=== PATIENT | male | born 1945 | race Caucasian/White ===

== ENCOUNTER 2017-01-25 08:35 | Day surgery (SDC) | payer MEDICARE, OTHER ==
[2017-01-25] MEDS ORDERED: DEMEROL 50 MG IV ONE (08:36)
[2017-01-25] MEDS ORDERED: VERSED 5 MG/5 ML IV ONE (08:36)
--- NOTE | 2017-01-25 08:37 | HP ---
DATE OF SURGERY: 01/25/2017 ADMISSION DIAGNOSIS: Four year follow up of polyps. ANTICIPATED PROCEDURE: Colonoscopy. HISTORY OF PRESENT ILLNESS: PAST MEDICAL HISTORY: ALLERGIES: PENICILLIN. MEDICATIONS: Multiple. PAST SURGICAL HISTORY: Appendectomy, tonsillectomy, knee replacement. SOCIAL HISTORY: Negative. FAMILY HISTORY: Negative. REVIEW OF SYSTEMS: Diabetes, hypertension. PHYSICAL EXAMINATION: VITAL SIGNS: Normal. CHEST: Clear. COR: Regular. ABDOMEN: No palpable organomegaly or mass. IMPRESSION: Four year follow up of polyps. PLAN: Colonoscopy.
[2017-01-25] MEDS ORDERED: Sodium Chloride 0.9% 1000 ML 1,000 ML IV SCH (09:15)
[2017-01-25 12:22] VITALS: BP 139/87; PULSE 83; O2SAT 97
--- NOTE | 2017-01-25 13:00 | OP ---
SURGERY DATE/TIME: 01/25/2017 1120 PREOPERATIVE DIAGNOSIS: Four year follow up of polyps. POSTOPERATIVE DIAGNOSIS: One major polyp md sigmoid 25 cm requiring hot biopsy followed by hot snare, followed by methylene blue marking. PROCEDURE: Colonoscopy. SURGEON: Edgar Villalobos M.D. ANESTHESIA: 20 minutes IV sedation monitored. COMPLICATIONS: None. CONDITION: Stable. INDICATION: A 71 years old requiring evaluation. DESCRIPTION OF PROCEDURE: Taken to the endoscopy. Anal digital examination satisfactory. Time out performed. IV sedation titrated. Oximetry kept over 90% and comfort level was satisfactory throughout the procedure. The scope advanced up to the cecum. Cecum was slightly indistinct but ileocecal valve was satisfactory base of the cecum, ascending, hepatic, transverse, splenic, descending. In the sigmoid a 1.2 cm polyp was picked up, was hot biopsied. It was then snared and taken with hot snare. The base was totally removed. It was removed very nicely. The mucosa was absent for 1 cm distance. Muscularis appeared totally intact. This was then marked with dye both on the medial and lateral surfaces of the mid sigmoid. The scope withdrawn. No additional lesions. The patient tolerated the procedure satisfactorily. Findings discussed with the family in the waiting room. I will see him back in the office in two weeks. This is an interesting polyp and the pathology will be important.
== END 2017-01-25 12:55 | disposition home or self-care (01) ==
LOC: SDC 08:35
PROVIDERS: ATTEND Surgery
PROC: 0DBN8ZX Excision of Sigmoid Colon, Via Natural or Artificial Opening Endoscopic, Diagnostic (ICD-10-PCS; principal; 2017-01-25)
PROC: 3E0H8GC Introduction of Other Therapeutic Substance into Lower GI, Via Natural or Artificial Opening Endoscopic (ICD-10-PCS; 2017-01-25)
PROC: 0DBN8ZX Excision of Sigmoid Colon, Via Natural or Artificial Opening Endoscopic, Diagnostic (ICD-10-PCS; 2017-01-25)
DX: Z86.010 Personal history of colon polyps (principal); K63.5 Polyp of colon; Z09 Encounter for follow-up examination after completed treatment for conditions other than malignant neoplasm; I10 Essential (primary) hypertension; E11.9 Type 2 diabetes mellitus without complications
CPT/HCPCS: 88305; J2175; J2250

== ENCOUNTER 2020-05-27 11:32 | Day surgery (SDC) | payer MEDICARE ==
--- NOTE | 2020-05-14 10:54 | HP ---
DATE OF SURGERY: 05/27/2020 HISTORY OF PRESENT ILLNESS: The patient presents with follow up colonoscopy. Last colonoscopy was in 2017 and he had some polyps. He was started on some Protonix and reports it helps with reflux, has soft bowel movements daily. He reports that there has been some recent anemia. He denies any rectal bleeding, hematemesis. PAST MEDICAL HISTORY: Diabetes. Hypertension. Hyperlipidemia. PAST SURGICAL HISTORY: Bilateral knee replacement. Tonsillectomy. Appendectomy. ALLERGIES: PENICILLIN. EPINEPHRINE. MEDICATIONS: Metformin, pantoprazole, potassium, simethicone, aspirin, labetalol, losartan, nitroglycerin, Albuterol, glipizide, glucosamine, indapamide, loratadine. FAMILY HISTORY: None reported. SOCIAL HISTORY: Reports alcohol use. REVIEW OF SYSTEMS: CONSTITUTIONAL: Denies fever or chills. CHEST: Denies shortness of breath. CVS: Denies chest pain. ABDOMEN: Denies abdominal pain, nausea, vomiting, diarrhea, constipation or rectal bleeding. INTEGUMENTARY: Negative. PHYSICAL EXAMINATION: GENERAL: No acute distress. CHEST: Nonlabored. No shortness of breath. CVS: Regular rate and rhythm. ABDOMEN: Soft, nontender to palpation. EXTREMITIES: No edema. NEUROLOGIC: Alert. PSYCHIATRIC: Appropriate. IMPRESSION: Anemia, history of colon polyps. PLAN: EGD and colonoscopy with Dr. Edgar Villalobos. As dictated by Sonam Rebolledo NP.
[~2020-05-27 11:32] MED LIST: Lactated Ringers 1,000 ML IV SCH
[2020-05-27] MEDS ORDERED: Lactated Ringers 1,000 ML IV ONE (11:44)
--- NOTE | 2020-05-27 15:23 | OP ---
SURGERY DATE/TIME: 05/27/2020 9500 PREOPERATIVE DIAGNOSIS: Anemia. POSTOPERATIVE DIAGNOSES: 1) The patient has proton pump inhibitor polyp's otherwise normal upper endoscopic examination. 2) Colon was limited to the right mid colon. 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 3) Hot polypectomy of transverse polyp. 4) The patient has severe sigmoid diverticulosis. PROCEDURES: 1) EGD. 2) Colonoscopy. SURGEON: Edgar Villalobos M.D. ANESTHESIA: MAC. COMPLICATIONS: None. CONDITION: Stable. INDICATION: The patient has new anemia referred for evaluation. DESCRIPTION OF PROCEDURE: Taken to endoscopy. Left lateral decubitus position. Scope introduced. Pharyngoesophageal junction was normal. Esophagus normal down to gastroesophageal junction. There were proton pump inhibitor polyps but the stomach otherwise was normal. There were no signs of bleeding. Pylorus satisfactory. Duodenum satisfactory. The scope was withdrawn looped upon itself and noted hiatal hernia from below. Scope withdrawn. Anal digital examination satisfactory. Scope introduced. There was severe sigmoid diverticulosis navigated. Left colon was navigated. Coming across from the spleen a 2 cm polyp was taken at the mid transverse colon. Coming over I believe this is mid ascending but it could be hepatic that a massive fungating mass 270 degrees looks most consistent with colon cancer was present. [employer] Pollution Compliance Inspector biopsies obtained and the procedure was terminated at that point. The patient will clearly need a right hemicolectomy. On circumferential withdrawal, no additional lesions noted although the exam a little under prepped today. He will need a follow up exam not to long after his colonoscopy for perfection. Findings discussed with the family. We will obtain a CEA, obtain a CT scan. The path is pending. We will see him back in the office on Sunday.
[2020-05-27 15:34] VITALS: BP 160/92; PULSE 62; O2SAT 95
== END 2020-05-27 15:45 | disposition home or self-care (01) ==
LOC: SDC 11:32
PROVIDERS: ATTEND Surgery
DX: C18.9 Malignant neoplasm of colon, unspecified (principal); D64.9 Anemia, unspecified; Z86.010 Personal history of colon polyps; D12.2 Benign neoplasm of ascending colon; D12.3 Benign neoplasm of transverse colon; K57.30 Diverticulosis of large intestine without perforation or abscess without bleeding; K44.9 Diaphragmatic hernia without obstruction or gangrene; E11.9 Type 2 diabetes mellitus without complications; I10 Essential (primary) hypertension; E78.5 Hyperlipidemia, unspecified; Z79.899 Other long term (current) drug therapy
CPT/HCPCS: 36415; 82378; 82947; 88305; 99100

== ENCOUNTER 2021-07-28 08:23 | Day surgery (SDC) | payer MEDICARE ==
--- NOTE | 2021-07-20 15:35 | HP ---
DATE OF SURGERY: 07/28/2021 HISTORY OF PRESENT ILLNESS: The patient presents for endoscopy. Apparently the patient recently had been diagnosed with anemia. He denies any GI symptoms at this time. He does have a history of colon cancer. He had a right hemicolectomy in June 2020. I do not think the patient has been scoped since then. PAST MEDICAL HISTORY: Atrial fibrillation. Colon cancer. Coronary artery disease. Diabetes. Heart attack. Hypertension. Hyperlipidemia. PAST SURGICAL HISTORY: Right hemicolectomy. Heart cath. Appendectomy. T&A. Ventral hernia repair. ALLERGIES: PENICILLIN. EPINEPHRINE. STATINS. MEDICATIONS: Xarelto, simethicone, Repatha, ProAir, potassium, pantoprazole, Nitro, Metformin, lorazepam, loratadine, labetalol, indapamide, glucosamine, glipizide. FAMILY HISTORY: None reported. SOCIAL HISTORY: None reported. REVIEW OF SYSTEMS: CONSTITUTIONAL: Denies fever or chills. CHEST: Denies shortness of breath. CVS: Denies chest pain. ABDOMEN: Denies abdominal pain or rectal bleeding. PHYSICAL EXAMINATION: GENERAL: No acute distress. CHEST: Nonlabored. No shortness of breath. CVS: Regular rate and rhythm. ABDOMEN: Soft, nontender. IMPRESSION: Anemia and history of colon cancer. PLAN: EGD and colonoscopy with Dr. Edgar Villalobos. As dictated by Sonam Rebolledo NP.
[2021-07-28] MEDS ORDERED: Lactated Ringers 1,000 ML IV SCH (09:00)
[2021-07-28] MEDS ORDERED: Xylocaine-Mpf 2% 5 Ml Vial ONE (10:35)
[2021-07-28] MEDS ORDERED: DIPRIVAN 200 MG/20 ML IV ONE ×2 (10:35→11:34)
[2021-07-28 11:38] VITALS: O2SAT 97
[2021-07-28 11:56] VITALS: BP 176/82; PULSE 65
--- NOTE | 2021-07-28 13:53 | OP ---
SURGERY DATE: 07/28/2021 SURGERY TIME: 1100 PREOPERATIVE DIAGNOSIS: 1. ANEMIA. 2. HISTORY OF COLON CANCER. POSTOPERATIVE DIAGNOSIS: 1. TWO POLYPS, ONE IN THE TRANSVERSE COLON AND ONE IN THE DESCENDING/SIGMOID JUNCTION AREA. 2. GRADE 2/4 GASTROESOPHAGEAL REFLUX DISEASE. 3. NEARLY RESOLVED GASTRITIS IN THE ANTRUM. PROCEDURE: 1. Colonoscopy complete with hot polypectomy X 2. Normal anastomosis, 2 polyps. 2. EGD. SURGEON: Edgar Villalobos M.D. ANESTHESIA: MAC. COMPLICATIONS: None. CONDITION: Stable. OPERATIVE PROCEDURE: Phrenoesophageal junction cannulated. Esophagus normal down to esophagogastric junction. Esophagitis grade 2. Small hiatal hernia. Fundus and body. In antrum, resolving antritis, just about healed. Pylorus satisfactory. Duodenal bulb satisfactory. 2nd portion satisfactory. Scope looped upon itself. Small hiatal hernia. Scope withdrawn. Anal digital examination satisfactory. Scope introduced. Scope advanced to the anastomosis. The anastomosis normal. Coming back about 4", 8 mm polyp was taken to extinction. Coming back down in the descending/sigmoid, a 1 cm polyp taken to extinction. Sigmoid, rectum, and anus satisfactory. No blood was seen on today's examination. Two polyps were taken. He certainly had had some gastritis recently, but it has just about healed. He was not placed on any additional medications.
== END 2021-07-28 11:59 | disposition home or self-care (01) ==
LOC: SDC 08:23
PROVIDERS: ATTEND Surgery
DX: Z08 Encounter for follow-up examination after completed treatment for malignant neoplasm (principal); Z85.038 Personal history of other malignant neoplasm of large intestine; D64.9 Anemia, unspecified; D12.4 Benign neoplasm of descending colon; D12.3 Benign neoplasm of transverse colon; K21.9 Gastro-esophageal reflux disease without esophagitis; K29.70 Gastritis, unspecified, without bleeding; E11.9 Type 2 diabetes mellitus without complications
CPT/HCPCS: 82947; 99100; J2704

== ENCOUNTER 2023-04-12 07:56 | Day surgery (SDC) | payer MEDICARE ==
--- NOTE | 2023-04-11 12:59 | HP ---
DATE OF SURGERY: 04/12/2023 HISTORY OF PRESENT ILLNESS: The patient is a 77-year-old male presents for colonoscopy. The patient had right hemicolectomy for colon cancer some years back. He presents for follow up of such. PAST MEDICAL HISTORY: Coronary artery disease. Colon cancer. Myocardial infarction. Heartburn. Arthritis. Asthma. Hypertension. Benign prostatic hypertrophy. PAST SURGICAL HISTORY: Appendectomy. Cardiac ablation. Right hemicolectomy. Carotid endarterectomy. Knee surgery. Tonsillectomy. Hernia repair. ALLERGIES: PENICILLIN. EPINEPHRINE. MEDICATIONS: Repatha. Mounjaro, tamsulosin, diltiazem, Xarelto, pantoprazole, nitroglycerin, losartan, lorazepam, loratadine, labetalol, indapamide, glucosamine, glipizide, silvia root, flaxseed oil, colchicine, Albuterol. FAMILY HISTORY: None reported. SOCIAL HISTORY: Occasional alcohol. REVIEW OF SYSTEMS: CONSTITUTIONAL: Denies fever or chills. CHEST: Denies shortness of breath. CVS: Denies chest pain. ABDOMEN: Denies abdominal pain. PHYSICAL EXAMINATION: GENERAL: No acute distress. CHEST: Nonlabored. No shortness of breath. CVS: Regular rate and rhythm. ABDOMEN: Soft. IMPRESSION: History of colon cancer. PLAN: Colonoscopy with Dr. Edgar Villalobos. As dictated by Sonam Rebolledo NP.
[2023-04-12] MEDS ORDERED: Lactated Ringers 1,000 ML IV ONE (08:11)
[2023-04-12] MEDS: Lactated Ringers 1,000 ML IV SCH (08:17)
[2023-04-12] MEDS ORDERED: DIPRIVAN 200 MG/20 ML IV ONE ×2 (10:59→11:19)
[2023-04-12 12:09] VITALS: BP 136/74; PULSE 64; RESP 18; TEMP 97.1; O2SAT 95
--- NOTE | 2023-04-12 13:32 | OP ---
SURGERY DATE/TIME: 04/12/2023 1100 PREOPERATIVE DIAGNOSIS: Follow up polyps. POSTOPERATIVE DIAGNOSIS: Two polyps, splenic flexure 1 cm and sigmoid 1 cm. PROCEDURE: Colonoscopy complete with hot polypectomy x2. SURGEON: Edgar Villalobos M.D. ANESTHESIA: General. COMPLICATIONS: None. CONDITION: Stable. INDICATION: The patient had previous resection for cancer. He presents for colon surveillance and follow up. DESCRIPTION OF PROCEDURE: He was taken to endoscopy. Left lateral decubitus position. Anal digital examination satisfactory. Prostate satisfactory. Scope introduced to mid transverse colon. Anastomosis is normal. On circumferential withdrawal, the prep was okay, not perfect and it was one off but it was pretty satisfactory. A 1 cm polyp in the splenic flexure taken with hot biopsy forceps. A 1 cm polyp in the mid sigmoid taken with hot biopsy forceps. Scope withdrawn. The patient tolerated the procedure satisfactorily. Anticipated follow up in three years.
== END 2023-04-12 12:22 | disposition home or self-care (01) ==
LOC: SDC 07:56
PROVIDERS: ATTEND Surgery
DX: Z08 Encounter for follow-up examination after completed treatment for malignant neoplasm (principal); Z85.038 Personal history of other malignant neoplasm of large intestine; Z86.010 Personal history of colon polyps; Z79.899 Other long term (current) drug therapy; D12.5 Benign neoplasm of sigmoid colon
CPT/HCPCS: 82947; 99100; J2704

== ENCOUNTER 2024-11-26 08:29 | Emergency (ER) | payer MEDICARE ==
[2024-11-26 08:52] VITALS: RESP 16; TEMP 97.9
--- NOTE | 2024-11-26 09:31 | ERPHSYRPT ---
- History of Present Illness Time Seen by Provider: 11/26/24 09:21 Source: patient, family Patient Subjective Stated Complaint: Cough, malaise, headache Triage Nursing Assessment: Patient walks to the bed accompanied by family member. He state states be was exposed to a sick grandchild last week and begin feeling sick after his COVID vaccine on Sunday. He has been experiencing a productive cough with green mucous, headache rated at a 3 and malaise. He denies shortness of breath at this time, but says he is short of breath at night. Lung sounds are diminished in the bases. He denies any other pain. Physician History: Patient comes to the emergency room stating that he has been dealing with cough congestion going on for the past couple day. He has been dealing also with a sore throat and stating that he has not had no fever but at times he felt like he was wheezing slightly but at this time he has not he is coughing up clear type sputum. Patient couple months ago was dealing with pneumonia family was concerned that he might have pneumonia again. Timing/Duration: yesterday Possible Cause: occasional episodes Modifying Factors: Improves With: activity, coughing Associated Symptoms: cough, earache, nasal drainage, sore throat, No fever, No chest pain/soreness Allergies/Adverse Reactions: [id number] Reductase Inhibitor Adverse Reaction (Verified 09/23/24 10:33) Home Medications: Albuterol Sulfate [Proair Hfa] 8.5 gm IH QID 05/18/20 [History] Flaxseed Oil [Flax Seed Oil] 1,000 mg PO TID 05/18/20 [History] Silvia Root 550 mg PO TID 05/18/20 [History] Indapamide 5 mg PO BREAKFAST 05/18/20 [History] Loratadine 10 mg [Claritin 10 mg] 10 mg PO DAILY 05/18/20 [History] Lorazepam 0.5 mg [Ativan 0.5 MG] 0.5 mg PO BID PRN 05/18/20 [History] Losartan Potassium [Cozaar] 25 mg PO DAILY 05/18/20 [History] PANTOPRAZOLE 40 mg Tablet [Protonix 40MG Tablet] 40 mg PO QAM 05/18/20 [History] Simethicone 80 mg [Mylicon 80MG] 80 mg PO TID 05/18/20 [History] dilTIAZem HCL [Cardizem LA] 180 mg PO DAILY 07/26/21 [History] Tamsulosin HCl 0.4 mg [Flomax 0.4 MG] 0.4 mg PO DAILY 07/28/21 [History] Colchicine 0.6 mg PO DAILY 04/06/23 [History] Tirzepatide [Mounjaro] 10 mg SQ WEEKLY 04/06/23 [History] Ferrous Sulfate 325 mg [Feosol 325 mg] 325 mg PO DAILY 04/12/23 [History] Metformin HCl 500 mg [Glucophage 500 MG] 1,000 mg PO BIDWM 04/12/23 [History] Nitroglycerin 0.4 mg (Ed) [Nitrostat 0.4 MG (ED)] 0.4 mg SL Q5MIN PRN MR X 3 PRN 04/12/23 [History] Potassium Chloride 20 meq PO DAILY 04/12/23 [History] Evolocumab [Repatha Sureclick] 140 mg SQ UD 10/09/24 [History] Labetalol HCl 100 mg [Trandate 100 MG] 100 mg PO TID 10/09/24 [History] glipiZIDE [Glipizide] 2.5 mg PO DAILY 10/09/24 [History] Hx Tetanus, Diphtheria Vaccination/Date Given: Yes Hx Influenza Vaccination/Date Given: Yes Hx Pneumococcal Vaccination/Date Given: Yes Immunizations Up to Date: Yes Travel Risk - International Travel Have you traveled outside of the country in past 3 weeks: No - Emerging Infectious Disease Are you exhibiting symptoms associated with any current EIDs: Yes Symptoms: Cough: New Onset - Review of Systems Constitutional: Fatigue, No Fever, No Chills Ears, Nose, & Throat: Ear Pain, Nose Congestion, Throat Pain Respiratory: Cough Cardiac: No Chest Pain, No Edema, No Syncope Abdominal/Gastrointestinal: No Symptoms Musculoskeletal: No Back Pain, No Neck Pain Skin: No Rash Neurological: No Dizziness, No Focal Weakness, No Sensory Changes - Past Medical History Pertinent Past Medical History: Yes Neurological History: No Pertinent History ENT History: No Pertinent History Cardiac History: Angina, High Cholesterol, Hypertension Respiratory History: Asthma Endocrine Medical History: Diabetes Type II Musculoskeletal History: Arthritis GI Medical History: Colorectal Cancer, GERD, Polyps History: No Pertinent History Psycho-Social History: Anxiety Male Reproductive Disorders: No Pertinent History, Prostate Cancer Other Medical History: hx gas bloating and burning sensation upper gi, nausea. prostate cancer with radiation - Past Surgical History Past Surgical History: Yes Neuro Surgical History: No Pertinent History Cardiac: Cardiac Stent Respiratory: No Pertinent History Gastrointestinal: Appendectomy, Colon Resection, Hernia Repair Genitourinary: No Pertinent History Musculoskeletal: Orthopedic Surgery Male Surgical History: No Pertinent History Other Surgical History: shilpa. knee replacement-hip replacement. multiple colonoscopies and egd's. - Social History Smoking Status: Former smoker Exposure to second hand smoke: No Drug Use: none - Social Determinants of Health Will the patient participate in the screening: Yes Do you worry about a steady place to live?: No Do you have any problems with any of the following?: No known problems In the past 12 months,have you had to go without utilities?: No Transportation Issues: No Has anyone in your support network made you feel unsafe?: No Have you or anyone in your house had to go w/o enough food: No - Nursing Vital Signs Nursing Vital Signs: Initial Vital Signs Temperature 97.9 F 11/26/24 08:33 Pulse Rate 80 11/26/24 08:33 Respiratory Rate 16 11/26/24 08:33 Blood Pressure 130/90 11/26/24 08:33 O2 Sat by Pulse Oximetry 96 11/26/24 08:33 Pain Scale Pain Intensity 4 - Physical Exam General Appearance: no apparent distress Eye Exam: PERRL/EOMI Ears, Nose, Throat Exam: normal ENT inspection Neck Exam: normal inspection Respiratory Exam: normal breath sounds Cardiovascular Exam: regular rate/rhythm Neurologic Exam: alert, oriented x 3, cooperative Lymphatic Exam: No adenopathy SpO2 Interpretation: normal SpO2: 96 - Course Nursing assessment & vital signs reviewed: Yes Ordered Tests: Active Orders 24 hr Category Date Time Status CHEST 1 VIEW (PORTABLE) Stat Exams 11/26/24 09:11 Completed Lab/Rad Data: Laboratory Results 11/26/24 Range/Units 08:45 Influenza Type A Ag NEGATIVE (NEGATIVE) Influenza Type B Ag NEGATIVE (NEGATIVE) RSV (PCR) NEGATIVE (NEGATIVE) SARS-CoV-2 (PCR) NEGATIVE (NEGATIVE) Group A Strep Antibody NEGATIVE (NEGATIVE) - Progress Air Movement: good Progress Note: 11/26/24 09:32 Patient is not hypoxic or tachypneic is afebrile normotensive at this time the patient does not have any signs of sepsis or any other findings that would suggest any requirement for blood work. Patient was swabbed for COVID flu and has been dealing with the symptoms since he got that shot. Patient's x-ray is negative for pneumonia. Patient advised that his symptoms are probably secondary to getting the vaccination and that if his symptoms worsen to return to the emergency room. It appears right now the patient is suffering from a viral URI. Patient was examined for possible pneumonia, sinus infection and viral infection Blood Culture(s) Obtained: No Antibiotics given: No Medical Desision Making - Independent Historian Additional History obtained from: Spouse - Discussion of managment Reviewed:: Test results Agreed on:: Treatment plan, need for follow-up - Diagnostic Testing Diagnostic test were ordered, analyzed, and reviewed by me: Yes Radiological Interpretation: Interpreted by me Diagnostic Testing (additional info): Chest x-ray was ordered on the patient and its negative for PNA - Risk of complications Minimal Risk: Minimal risk of morbidity Low Risk: Low risk of morbidity from additional dx testing or treatment - Departure Departure Disposition: Home Clinical Impression: Viral URI with cough Condition: Stable Critical Care Time: No Referrals: CATHERINE GILLILAND MD [Primary Care Provider, UNKNOWN] - Follow up/PCP as directed
--- NOTE | 2024-11-26 09:31 | XRAY ---
Indication: Cough. Comparison: None Portable chest demonstrates mild bibasilar infiltrates versus atelectasis and chronic right hemidiaphragm elevation. No consolidation, large effusion, or pneumothorax. Heart not enlarged. Bony thorax intact.
[2024-11-26 10:19] LABS: Group A Strep NEGATIVE (NEGATIVE)
[2024-11-26 10:26] LABS: INFLUENZA A NEGATIVE (NEGATIVE); INFLUENZA B NEGATIVE (NEGATIVE); RESPIRATORY SYNCTIAL VIRUS NEGATIVE (NEGATIVE); SARS-CoV-2 Xpert Express NEGATIVE (NEGATIVE)
[2024-11-26 10:50] VITALS: BP 138/73; PULSE 62; O2SAT 98
== END 2024-11-26 10:51 | disposition home or self-care (01) ==
LOC: ED 08:29
DX: J06.9 Acute upper respiratory infection, unspecified (principal); R05.1 Acute cough; J02.9 Acute pharyngitis, unspecified; I10 Essential (primary) hypertension; E11.9 Type 2 diabetes mellitus without complications; Z79.85 Long-term (current) use of injectable non-insulin antidiabetic drugs; Z79.84 Long term (current) use of oral hypoglycemic drugs; Z79.899 Other long term (current) drug therapy